=== PATIENT | female | born 1970 | race Caucasian/White ===

== ENCOUNTER 2021-05-06 00:53 | Day surgery (SDC) | payer OTHER, SELFPAY ==
[2021-04-19 13:39] VITALS: BMI 26.6
[2021-05-06 07:17] VITALS: BP 126/82; PULSE 110; RESP 18; TEMP 36.6; O2SAT 98
[2021-05-06] MEDS: LACTATED RINGERS 1,000 ML 150 ML IV CONT (07:26)
--- NOTE | 2021-05-06 07:45 | PM.HPGS ---
History of Present Illness History of Present Illness Consent: Risks, benefits, and alternatives have been discussed and questions answered. Patient agrees to proceed with procedure. Chief complaint: neoplasm screening Narrative: Inez Uriarte is a 51 year old female here for first screening colonoscopy Review of Systems Constitutional: Constitutional: Denies headache(s) and Denies weakness Eyes: Eyes: Denies blurry vision ENT: Reports Normal hearing present, Denies headache(s) and Denies neck pain Cardiovascular: Cardiovascular: Denies chest pain and Denies dyspnea Respiratory: Respiratory: Denies dyspnea Gastrointestinal: Gastrointestinal: Reports no additional gastrointestinal complaints Genitourinary: Genitourinary: Denies dysuria Musculoskeletal: Musculoskeletal: Denies neck pain Integumentary/Breasts: Skin/Breast: Denies dry skin Neurologic: Reports Normal hearing present, Denies headache(s) and Denies weakness Psychiatric: Psychiatric: Denies anxiety Endocrine: Endocrine: Denies change in body appearance Hematologic/Lymphatic: Hematologic/Lymphatic: Denies easy bleeding Allergic/Immunologic: Allergic/Immunologic: Denies urticaria PMF Past Medical History Medical History (Updated 05/06/21 @ 07:46 by Fantasma Su MD) Colon cancer screening Surgical History Surgical History History of partial hysterectomy (~2004) cervical dysplasia S/P cholecystectomy (~2012) Family History Family History Sibling Family history of thyroid disease brother Mother Family history of hypercholesterolemia Father Family history of coronary artery disease, Onset Age: 72 Hypertension Acute myocardial infarction Grandparent Carcinoma of colon, Onset Age: 88 age @ Social History Social History Smoking status: Never smoker Alcohol intake: current Alcohol use details: occasional wine on weekend Substance use: never Substance use type: does not use Living arrangements: with family Additional occupation/education comments: Teacher Gender identity (if verbalized by the patient): Female Spiritual care concerns: No Meds Home Medications and Allergies Home Medications Medication Instructions Recorded Confirmed Type cetirizine [Zyrtec] 10 mg PO DAILY PRN 04/19/21 04/19/21 History hydroxyzine HCl See Rx Instructions .ROUTE 04/19/21 04/19/21 History .COMPLEX PRN Allergies Allergy/AdvReac Type Severity Reaction Status Date / Time Sulfa (Sulfonamide Allergy Mild rash Verified 10/19/19 13:15 Antibiotics) Vital Signs Vital Signs - 24 hr 05/06/21 07:17 Temperature 97.9 F Pulse Rate 110 H Respiratory Rate 18 Blood Pressure 126/82 Pulse Oximetry 98 Exam Const: General: comfortable and no acute distress HENMT: General nose exam: Normal nares present Eyes: General: appearance normal, both eyes and all related structures Neck: Neck: no JVD Resp: Auscultation: clear to auscultation bilaterally Cardio: Rate: regular rate Rhythm: regular rhythm GI: Inspection: non-distended GI Palp: Yes Soft to palpation Skin: General skin exam: normal color Neuro: General: gait normal Speech: normal speech Extrem: General: normal to inspection Psych: Mental Status: mental status grossly normal Assessment and Plan Assessment and plan (1) Colon cancer screening: Code(s): Z12.11 - Encounter for screening for malignant neoplasm of colon Status: Acute Assessment and Plan: colonoscopy
--- NOTE | 2021-05-06 07:47 | P.PNAN_ITS ---
Anes - Initial Pre Proc Eval Procedure: Operation Date: 05/06/21 08:30 Proposed Procedures p Screening Colonoscopy - Fantasma Su MD Date/Time: 05/06/21 07:47 Surgeon: Fantasma Su MD Pre Op Diagnosis: neoplasm screening Patient Data Age: 51 Gender: F Height: 1.57 m Weight: 66 kg Last Vital Signs Temp 97.9 F 05/06/21 07:17 Pulse 110 H 05/06/21 07:17 Resp 18 05/06/21 07:17 BP 126/82 05/06/21 07:17 Pulse Ox 98 05/06/21 07:17 Allergies Allergy/AdvReac Type Severity Reaction Status Date / Time Sulfa (Sulfonamide Allergy Mild rash Verified 10/19/19 13:15 Antibiotics) Home Medications Medication Instructions Recorded Confirmed Type cetirizine [Zyrtec] 10 mg PO DAILY PRN 04/19/21 04/19/21 History hydroxyzine HCl See Rx Instructions .ROUTE 04/19/21 04/19/21 History .COMPLEX PRN Patient hx anesthesia problems: none Family hx anesthesia problems: none Results Review: All pre-operative results and documents have been reviewed as part of the pre-operative evaluation. [facility] Past Medical History Medical History (Updated 05/06/21 @ 07:46 by Ming Ferrell MD) Colon cancer screening Overweight (BMI 25.0-29.9) Surgical History Surgical History History of partial hysterectomy (~2004) cervical dysplasia S/P cholecystectomy (~2012) Family History Family History Sibling Family history of thyroid disease brother Mother Family history of hypercholesterolemia Father Family history of coronary artery disease, Onset Age: 72 Hypertension Acute myocardial infarction Grandparent Carcinoma of colon, Onset Age: 88 age @ Social History Social History Smoking status: Never smoker Alcohol intake: current Alcohol use details: occasional wine on weekend Substance use: never Substance use type: does not use Living arrangements: with family Additional occupation/education comments: Teacher Gender identity (if verbalized by the patient): Female Spiritual care concerns: No Anes - Eval Final PreProcedure Day of Procedure 05/06/21 07:47 Patient weight: overweight Heart: regular rate and rhythm Lungs: clear to auscultation Airway: Mallampati scale class II Neurological: alert and oriented Last oral intake: >/= 8 hours ASA classification: II Emergent: no Anesthetic plan: proceed Anesthesia type and monitoring: general GIVS and standard monitoring Results Review: All pre-operative results and documents have been reviewed as part of the pre-operative evaluation. Informed Consent: The patient's anesthetic plan and its attendant risks and benefits were discussed with the patient/family/POA. Questions were solicited and answers provided to the satisfaction of the patient/family/POA.
[2021-05-06 08:09] VITALS: BP 103/77; PULSE 104; RESP 17; O2SAT 97
[2021-05-06 08:19] VITALS: BP 110/77; PULSE 85; RESP 15; O2SAT 99
[2021-05-06 08:29] VITALS: BP 111/82; PULSE 90; RESP 20; O2SAT 100
== END 2021-05-06 08:42 | disposition home or self-care (01) ==
PROVIDERS: PCP Nurse Practitioner Family; Visit Provider Internal Medicine Gastroenterology
PROC: 0DJD8ZZ Inspection of Lower Intestinal Tract, Via Natural or Artificial Opening Endoscopic (ICD-10-PCS; CPT 45378; principal; 2021-05-06 08:30)
DX: Z12.11 Encounter for screening for malignant neoplasm of colon (principal); K63.5 Polyp of colon; K64.8 Other hemorrhoids
CPT/HCPCS: 45380; 88305; J2704; J7120

== ENCOUNTER 2022-12-31 10:34 | Outpatient (CLI) | payer OTHER, SELFPAY ==
[2022-12-31 18:50] LABS: Basophils Percent Auto 0.8 % (0.2-1.2); Eosinophils Absolute Auto 0.1 K/mm3 (0-0.3); Eosinophils Percent Auto 2.7 % (0-4.4); Hematocrit 41.3 % (37.0-47.0); Hemoglobin 13.5 g/dL (12.0-15.0); Immature Granulocyte Absolute 0.02 K/mm3 (0.00-0.031); Immature Granulocyte Percent A 0.4 % (0-0.5); Lymphocytes Absolute Auto 1.92 K/mm3 (0.9-3.2); Lymphocytes Percent Auto 36.4 % (18.3-44.2); Mean Corpuscular HGB Conc 32.7 g/dl (32-36); Mean Corpuscular Hemoglobin 29.7 pg (26-34); Mean Corpuscular Volume 90.8 fl (80-100); Mean Platelet Volume 10.2 fl (7.4-10.4); Monocytes Absolute Auto 0.5 K/mm3 (0.1-0.6); Monocytes Percent Auto 9.8 % (2.6-8.5); Neutrophils Absolute Auto 2.6 K/mm3 (1.3-6.7); Neutrophils Percent Auto 49.9 % (45.5-73.1); Platelet Count Result 335 k/mm3 (150-375); Red Blood Count 4.55 M/mm3 (4.2-5.4); Red Cell Distribution Width 12.5 % (11.5-14.5); White Blood Count 5.3 K/mm3 (4.5-10.0)
[2022-12-31 19:04] LABS: Alanine Aminotransferase 28 U/L (6-35); Albumin Level 4.3 g/dL (3.5-5.1); Alkaline Phosphatase 92 U/L (38-126); Anion Gap 7 mmol/L (8-16); Aspartate Amino Transferase 33 U/L (14-36); Bilirubin,Total 0.5 mg/dL (0.2-1.3); Blood Urea Nitrogen 16 mg/dL (7-17); Calcium 9.8 mg/dL (8.4-10.2); Carbon Dioxide 28 mmol/L (22-30); Chloride 103 mmol/L (98-107); Cholesterol 243 mg/dL (0-200); Estimated Glomerular Filt Rate > 60; Glucose 104 mg/dL (65-110); HDL Direct 76 mg/dL; Potassium 4.7 mmol/L (3.4-5.0); Sodium 138 mmol/L (137-145); Triglycerides 101 mg/dL (<150)
[2022-12-31 19:15] LABS: LDL Cholesterol Direct 130 mg/dL
[2023-01-04 22:06] LABS: Vitamin D 1,25 (OH)2 Total 61 pg/mL (18-72); Vitamin D2 1,25 (OH)2 <8 pg/mL; Vitamin D3 1,25 (OH)2 61 pg/mL
== END 2022-12-31 10:35 | disposition home or self-care (01) ==
LOC: ANHGOSHLAB 10:36
PROVIDERS: PCP Family Medicine; Visit Provider Nurse Practitioner Family
DX: Z00.00 Encounter for general adult medical examination without abnormal findings (principal); E78.5 Hyperlipidemia, unspecified; E55.9 Vitamin D deficiency, unspecified; H61.20 Impacted cerumen, unspecified ear
CPT/HCPCS: 36415; 80053; 80061; 82652; 84443; 85025

== ENCOUNTER → 2023-01-09 09:37 | Outpatient (CLI) | payer OTHER, SELFPAY ==
--- NOTE | ~2023-01-09 | US_ITS ---
EXAMINATION: US soft tissue head and neck DATE: 01/09/2023 09:56 INDICATION: Lump in throat. Dysphagia. TECHNIQUE: Multiple ultrasound images of the thyroid were obtained. COMPARISON: None. FINDINGS: The right thyroid lobe measures 4.3 x 1.6 x 1.1 cm. The left thyroid lobe measures 3.8 x 1.3 x 1.2 c m. In the right thyroid lobe, there is a 7 mm solid, hypoechoic, wider than tall nodule with smooth margin without echogenic foci (TI-RADS TR4). In the left thyroid lobe, there is a 5 mm solid, hypoech oic, wider than tall nodule with smooth margin without echogenic foci (TR4). IMPRESSION: 1. Small thyroid nodules, likely not clinically significant. No follow-up is needed. Reviewed, dictated and finalized at location B. IMPRESSION: 1. Small thyroid nodules, likely not clinically significant. No follow-up is ne eded.
== END ==
PROVIDERS: PCP Nurse Practitioner Family; Visit Provider Nurse Practitioner Family
DX: E04.1 Nontoxic single thyroid nodule (principal)
CPT/HCPCS: 76536

== ENCOUNTER → 2023-06-15 14:18 | Outpatient (CLI) | payer OTHER, SELFPAY ==
--- NOTE | ~2023-06-15 | XR_ITS ---
XR_CERV2-3V_CR DATE: 06/15/2023 14:28 INDICATION: Left neck pain. No injury. TECHNIQUE: AP, open-mouth, lateral views COMPARISON: None FINDINGS: There is moderately severe degenerative disc space narrowing, mild anterior and prominent p osterior spurring at C5-6 consistent with moderately severe degenerative disc disease. There is uncov ertebral joint spurring particularly at C5-6, more prominent on the right. The remaining cervical interspaces are relatively preserved. C1 and C2 are normally aligned and the odontoid process is intact. No fracture or dislocation or lock ed facet or prevertebral soft tissue swelling is detected. IMPRESSION: Moderately severe degenerative disc disease and uncovertebral joint spurring at C5-6 Reviewed, dictated and finalized at Location A. Reviewed, dictated and finalized at location B. TERPERSON
== END ==
PROVIDERS: PCP Nurse Practitioner Family; Visit Provider Nurse Practitioner Family
DX: M50.322 Other cervical disc degeneration at C5-C6 level (principal)
CPT/HCPCS: 72040

== ENCOUNTER 2023-09-11 15:48 | Outpatient (CLI) | payer OTHER, SELFPAY ==
--- NOTE | ~2023-09-11 | XR_ITS ---
XR lumbar spine min 4V DATE: 09/11/2023 16:08 INDICATION: Low back pain TECHNIQUE: AP, lateral, coned lateral lumbosacral and bilateral oblique views COMPARISON: None FINDINGS: There is mild loss of interspace height and anterior spurring at L1-2. There is moderately severe degenerative disc disease at L5-S1, with associated mild retrolisthesis. The lumbar interspaces appear relatively well preserved otherwise. No fracture or bone destruction is evident. The included lower thoracic and lumbar pedicles are intac t. No spondylolysis or spondylolisthesis is evident. Status post cholecystectomy. IMPRESSION: Mild degenerative disc disease at L1-2 and moderately severe degenerative disc disease at L5-S1 Reviewed, dictated and finalized at location A. IMPRESSION: Mild degenerative disc disease at L1-2 and moderately severe degene rative disc disease at L5-S1
== END 2023-09-11 15:49 ==
PROVIDERS: PCP Nurse Practitioner Family; Visit Provider Chiropractor
DX: M54.50 Low back pain, unspecified (principal); M51.36 Other intervertebral disc degeneration, lumbar region
CPT/HCPCS: 72110

== ENCOUNTER 2023-10-20 16:01 | Outpatient (CLI) | payer OTHER, SELFPAY ==
--- NOTE | ~2023-10-20 | MR_ITS ---
EXAMINATION: MR lumbar spine wo con DATE: 10/20/2023 16:29 INDICATION: Lumbar disc protrusion. Low back pain. TECHNIQUE: Magnetic resonance imaging (MRI) of the lumbar spine was performed without intravenous con trast. Sequences included sagittal T2-weighted FSE, sagittal T2-weighted FS FSE, sagittal T1-weighted FSE, and axial T2-weighted FSE. COMPARISON: Lumbar spine radiographs 09/11/2023 FINDINGS: There is 4 degrees dextrocurvature of lumbar spine. There is mild chronic anterior wedging of T12 and L1 vertebral bodies. There is mildly decreased disc height at L1-L2 and severely decreased disc height at L5-S1. The distal spinal cord signal intensity is normal. The conus medullaris is at T12-L1. The following disc levels are specifically discussed: L1-L2: The disc is bulging with superimposed left central extrusion. There is severe right and modera te left facet joint osteoarthritis. There is no neural foraminal stenosis. There is mild central haim l stenosis. L2-L3: There is a central extrusion. There is mild bilateral facet joint osteoarthritis. There is mil d left neural foraminal stenosis. There is mild central canal stenosis. L3-L4: The disc does not extend beyond the endplate margin. There is mild bilateral facet joint osteo arthritis. There is no neural foraminal stenosis. There is no central canal stenosis. L4-L5: The disc is bulging. There is severe bilateral facet joint osteoarthritis. There is mild bilat eral neural foraminal stenosis. There is mild central canal stenosis. L5-S1: The disc is bulging with superimposed left central extrusion. There is mild bilateral facet christofer int osteoarthritis. There is mild bilateral neural foraminal stenosis. There is mild central canal st enosis. IMPRESSION: 1. Severe lower lumbar spondylosis. Reviewed, dictated and finalized at location A.
== END 2023-10-20 16:02 ==
LOC: MICIMG 16:02
PROVIDERS: PCP Nurse Practitioner Family; Visit Provider Chiropractor
DX: M51.26 Other intervertebral disc displacement, lumbar region (principal); M43.06 Spondylolysis, lumbar region
CPT/HCPCS: 72148

== ENCOUNTER 2025-05-29 10:06 | Emergency (ER) | payer OTHER, SELFPAY ==
--- NOTE | ~2025-05-29 | XR_ITS ---
Examination: XR wrist LT min 3V Clinical History: pain prox Lt thumb x 7-8 mos w/o injury Comparison: None Technique: 4 views left wrist Findings/impression: 1. No fracture or dislocation left wrist. Reviewed, dictated and finalized at location R. A SUPERVISOR
[2025-05-29 10:58] VITALS: BP 127/82; PULSE 94; RESP 16; TEMP 36.7; O2SAT 100
--- NOTE | 2025-05-29 11:57 | ED.EXTPRO ---
HPI - Extremity Problem General Chief complaint: Extremity Injury, Upper Stated complaint: L Wrist Pain Time Seen by Provider: 05/29/25 11:57 Source: patient and RN notes reviewed Mode of arrival: ambulatory Limitations: no limitations History of Present Illness HPI Narrative: 55-year-old female presents with concern for 2 month history of left wrist pain. She denies any direct injury or trauma. She reports there is no pain at rest but when she flexes or does certain movements it is painful. She denies any swelling, redness, warmth. She occasionally uses a brace at night but not consistently. She is right handed MD Complaint: extremity pain Related Data Home Medications ?Medication ?Instructions ?Recorded ?Confirmed ?Last Taken ?Type estradiol 0.05 mg/24 hr semiweekly 05/29/25 Unknown History transdermal patch (Viktoria) progesterone micronized 200 mg mg 05/29/25 Unknown History capsule Allergies Allergy/AdvReac Type Severity Reaction Status Date / Time Sulfa (Sulfonamide Allergy Mild rash Verified 05/29/25 11:33 Antibiotics) Review of Systems Review of Systems: CONSTITUTIONAL: Denies malaise, chills, sweats, or fever. CARDIOVASCULAR: Denies chest pain, palpitations, or edema. RESPIRATORY: Denies cough or dyspnea. SKIN: Denies rash or itching, bruising, redness, swelling. MUSCULOSKELETAL: Reports left wrist pain NEUROLOGIC: Denies numbness, weakness All systems reviewed & are unremarkable except as noted in HPI and below PMFSH Past Medical History Medical History Arthritis of lumbar spine Bulging disc Abrasion of right ear canal Vitamin D deficiency Insomnia RLS (restless legs syndrome) GERD without esophagitis Overweight (BMI 25.0-29.9) Surgical History Surgical History S/P cholecystectomy (~2012) History of partial hysterectomy (~2004) cervical dysplasia Family History Family History Sibling Family history of thyroid disease brother Mother Family history of hypercholesterolemia Father Family history of coronary artery disease, Onset Age: 72 Hypertension Acute myocardial infarction Grandparent Carcinoma of colon, Onset Age: 88 age @ Social History Social History Social History: Caffeine-daily Smoking status: Never smoker Alcohol intake: current Alcohol use details: occasional wine on weekend Substance use: never Substance use type: does not use Lack of Transportation: No Lack of Food: Never True Current Housing: I Have Housing Concerned About Future Housing: No Difficulty Paying Gas/Electric Bills: No Difficulty Paying for Meds: No Currently Unemployed: No Education: Master's Degree or Higher Difficulty w/ Childcare or Family Care: No Living arrangements: with family Occupation/Education: occupation Additional occupation/education comments: Teacher Gender identity (if verbalized by the patient): Female Spiritual care concerns: No Comments At time of signature, agree with nursing past medical, surgical, social and family history. There is no relevant family history pertinent to the presenting complaint Exam Narrative: GENERAL: Well-appearing, well-nourished, and in no acute distress. HEAD: Normocephalic, atraumatic. EYES: PERRLA, conjunctivae clear NECK: Supple. CHEST: Speaks in full sentences. No respiratory distress. HEART: Regular rate and rhythm. Normal and equal peripheral pulses. EXTREMITIES: Left wrist, hand, digits have grossly normal strength and sensation, normal range of motion. No edema or ecchymosis. Normal sensation with sensitivity to light touch and pain. No point tenderness. No open wounds, no skin tenting, no devitalized tissue or atrophy, no trophic changes, no obvious deformity, alignment normal, nearby joints and structures intact. Distal pulses palpable and equal bilaterally, skin warm, dry, pink. Capillary refill less than 3 seconds. Tinnel and Phalen tests negative SKIN: Warm, dry, no rash. NEURO: Alert and oriented x3. PSYCH: Normal mood and affect Course Course Emergency Course: Patient is aware of diagnosis, understands and agrees to treatment plan. Anticipatory guidance given. Patient agrees to follow-up as directed and is aware of reasons to seek care at the emergency department. Portions of this record may have been created with voice recognition software Level of Care: Express Care Visit Vital Signs Vital signs: Vital Signs Temperature 98.1 F 05/29/25 10:58 Pulse Rate 94 05/29/25 10:58 Respiratory Rate 16 05/29/25 10:58 Blood Pressure 127/82 05/29/25 10:58 Pulse Oximetry 100 05/29/25 10:58 Temperature 98.1 F 05/29/25 10:58 Pulse Rate 94 05/29/25 10:58 Respiratory Rate 16 05/29/25 10:58 Blood Pressure 127/82 05/29/25 10:58 Pulse Oximetry 100 05/29/25 10:58 MDM Differential Diagnosis Differential Diagnosis: I evaluated this patient in the [facility]. History is obtained from patient who is an independent historian and physical exam was performed.? Available medical records were reviewed. ? Exam findings and relevant testing show no acute concerns or changes; patient is non-toxic appearing and is in no distress. ? Patients pain is consistent with musculoskeletal etiology. No signs of neurological or vascular compromise on exam. Compartments and tissues are soft without signs of compartment syndrome. Pain is felt appropriate for further evaluation on an outpatient basis. Differential diagnosis and treatment plan were discussed with the patient. Patient agrees with discussion and after shared medical decision making agrees with plan of care. All questions were answered to the patient's satisfaction. Patient is appropriate for outpatient treatment and follow-up. Discharge Plan Discharge Clinical Impression: Tendinitis Patient Disposition: Home Condition: Stable Instructions: Tendinitis (ED) Additional Instructions: Avoid activities that cause pain until the pain subsides. Ice to the area 20-30 minutes 4-6 times a day Elevate above heart Orthopedic splint as directed for comfort for the next 5-7 days Tylenol for pain Prednisone as directed for inflammation Follow up with your primary care provider if the condition is not improving within 1 week. If the condition worsens with numbness, tingling, decrease sensation with weakness seek treatment in the emergency room immediately. Patient Language: Kyrgyz Prescriptions: New methylprednisolone [Medrol (Silas)] 4 mg tablets,dose pack See Rx Instructions .ROUTE .COMPLEX Qty: 21 0RF Rx Instructions: orally per package directions No Action estradiol [Viktoria] 0.05 mg/24 hr patch semiweekly progesterone micronized 200 mg capsule hydroxyzine HCl 25 mg tablet 25 mg PO QHS PRN (Reason: Sleep) Qty: 90 1RF Follow-up/Referrals: PHYSICIAN,PALLIATIVE CARE COORDINATOR [Primary Care Provider, Internal Medicine] Time of Disposition: 12:11
== END 2025-05-29 12:15 | disposition home or self-care (01) ==
PROVIDERS: Emergency Provider Nurse Practitioner
DX: M67.834 Other specified disorders of tendon, left wrist (principal); K21.9 Gastro-esophageal reflux disease without esophagitis; G25.81 Restless legs syndrome; M47.816 Spondylosis without myelopathy or radiculopathy, lumbar region; Z90.711 Acquired absence of uterus with remaining cervical stump
CPT/HCPCS: 73110; 99213; G0463